=== PATIENT | female | born 1970 | race Caucasian/White ===

== ENCOUNTER 2017-06-22 11:55 | Outpatient (CLI) | payer OTHER ==
--- NOTE | 2017-06-22 13:35 | MMO ---
BILATERAL SCREENING MAMMOGRAM: History: 47-year-old female for screening mammography. Comparison: 05-06-16 FINDINGS: Bilateral MLO and CC views of the chest shows scattered fibroglandular breast tissue. There is no ev idence of suspicious mass, suspicious cluster microcalcifications or area of architectural distortio n. This study is interpreted with the assistance of computer aided detection. IMPRESSION: BIRADS category 1 - negative. Annual screening mammography is recommended. POS: [facility]
== END 2017-06-22 11:56 | disposition home or self-care (01) ==
LOC: SCSMAMMO 11:55
PROVIDERS: ATTEND Internal Medicine
DX: Z12.31 Encounter for screening mammogram for malignant neoplasm of breast (principal)
CPT/HCPCS: 77067; G0202